=== PATIENT | female | born 1995 | race Two or more races ===

== ENCOUNTER 2019-12-17 06:33 | Outpatient (CLI) | payer OTHER | END 2019-12-17 09:22 | disposition home or self-care (01) | LOC: NST 06:33 | PROVIDERS: ATTEND Obstetrics & Gynecology | DX: Z34.83 Encounter for supervision of other normal pregnancy, third trimester (principal) ==

== ENCOUNTER 2019-12-23 15:17 | Inpatient (IN) | payer OTHER ==
[~2019-12-23] VITALS: Ht 160 cm; Wt 68.0 kg
[2019-12-23] MEDS ORDERED: PRENATAL TABLE1 EAC1 PO (16:44)
[2019-12-25] MEDS ORDERED: AMOX1TAB5 PO (08:12)
[2019-12-25] MEDS ORDERED: DERMOPLAST PAIN78 GM TOP (08:12)
[2019-12-25] MEDS ORDERED: IBUPROFEN400 MG PO (08:12)
[2019-12-25] MEDS ORDERED: PREPLUS CA-FE1 EACH PO (08:12)
[2019-12-25] MEDS ORDERED: DOCUSATE SODIU100 MG PO (08:12)
== END 2019-12-25 12:34 | disposition home or self-care (01) | DRG 807 ==
LOC: OB/GYN 15:17 → LDR 15:17 → OB/GYN 12-24 00:19
PROVIDERS: ADMIT Obstetrics & Gynecology; ATTEND Obstetrics & Gynecology
PROC: 10E0XZZ Delivery of Products of Conception, External Approach (ICD-10-PCS; principal; 2019-12-23)
PROC: 0W8NXZZ Division of Female Perineum, External Approach (ICD-10-PCS; 2019-12-23)
PROC: 4A1HXFZ Monitoring of Products of Conception, Cardiac Rhythm, External Approach (ICD-10-PCS; 2019-12-23)
DX: O99.824 Streptococcus B carrier state complicating childbirth (principal); Z37.0 Single live birth; O69.81X0 Labor and delivery complicated by cord around neck, without compression, not applicable or unspecified; Z3A.38 38 weeks gestation of pregnancy; Z20.828 Contact with and (suspected) exposure to other viral communicable diseases

== ENCOUNTER 2021-12-27 11:44 | Outpatient (CLI) | payer OTHER ==
[~2021-12-27 11:44] MED LIST: AMOX1TAB5 PO; DERMOPLAST PAIN78 GM TOP; DOCUSATE SODIU100 MG PO; IBUPROFEN400 MG PO; PRENATAL TABLE1 EAC1 PO; PREPLUS CA-FE1 EACH PO
== END 2021-12-27 12:29 | disposition home or self-care (01) ==
LOC: NST 11:44
PROVIDERS: ATTEND Obstetrics & Gynecology Maternal & Fetal Medicine
DX: Z34.82 Encounter for supervision of other normal pregnancy, second trimester (principal)

== ENCOUNTER 2022-01-30 20:40 | Outpatient (CLI) | payer OTHER ==
[2022-01-30] MEDS ORDERED: PRENATAL CAPLE1 EAC1 PO (21:04)
== END 2022-01-31 09:53 | disposition home or self-care (01) ==
LOC: OBS/DEL 20:40
PROVIDERS: ATTEND Obstetrics & Gynecology Maternal & Fetal Medicine
DX: O9A.213 Injury, poisoning and certain other consequences of external causes complicating pregnancy, third trimester (principal); S00.81XA Abrasion of other part of head, initial encounter; Z3A.28 28 weeks gestation of pregnancy; W10.8XXA Fall (on) (from) other stairs and steps, initial encounter; Y93.E5 Activity, floor mopping and cleaning; Y92.009 Unspecified place in unspecified non-institutional (private) residence as the place of occurrence of the external cause

== ENCOUNTER 2022-04-10 14:00 | Inpatient (IN) | payer OTHER ==
[~2022-04-10] VITALS: Ht 160 cm; Wt 66.7 kg
[~2022-04-10 14:00] MED LIST changes: +PRENATAL CAPLE1 EAC1 PO
== END 2022-04-15 11:13 | disposition home or self-care (01) | DRG 807 ==
LOC: LDR 04-13 06:53 → OB/GYN 04-13 19:16
PROVIDERS: ADMIT Obstetrics & Gynecology; ATTEND Obstetrics & Gynecology
PROC: 10E0XZZ Delivery of Products of Conception, External Approach (ICD-10-PCS; principal; 2022-04-13)
PROC: 0KQM0ZZ Repair Perineum Muscle, Open Approach (ICD-10-PCS; 2022-04-13)
PROC: 0W8NXZZ Division of Female Perineum, External Approach (ICD-10-PCS; 2022-04-13)
PROC: 4A1HXCZ Monitoring of Products of Conception, Cardiac Rate, External Approach (ICD-10-PCS; 2022-04-13)
DX: O70.1 Second degree perineal laceration during delivery (principal); Z37.0 Single live birth; Z3A.38 38 weeks gestation of pregnancy; Z20.822 Contact with and (suspected) exposure to COVID-19

== ENCOUNTER 2022-06-20 08:45 | Day surgery (SDC) | payer OTHER | END 2022-06-20 18:00 | disposition home or self-care (01) | LOC: CIR.AMB 08:45 | PROVIDERS: ATTEND Obstetrics & Gynecology | DX: Z30.2 Encounter for sterilization (principal); N83.8 Other noninflammatory disorders of ovary, fallopian tube and broad ligament; Z64.1 Problems related to multiparity; Z20.822 Contact with and (suspected) exposure to COVID-19 ==

== ENCOUNTER 2023-06-01 12:16 | Emergency (ER) | payer OTHER ==
[~2023-06-01] VITALS: Ht 160 cm; Wt 55.3 kg
[2023-06-01 15:29] LABS: HEMATOCRIT 38.1 % (36.0-45.00); HEMOGLOBIN 12.6 g/dL (12.0-15.00); MEAN CELL VOLUME 88.5 fL (80.00-100.00); MEAN CORPUSCULAR HEMOGLOBIN 29.2 pg (27.00-32.0); PLATELET COUNT 277 K/uL (150-450); RED BLOOD COUNT 4.31 M/uL (4.00-6.00); RED CELL DISTRIBUTION WIDTH 14.1 % (11.5-14.5)
[2023-06-01 15:35] LABS: URINE APPEARANCE Clear; URINE BILIRRUBIN Negative (NEGATIVE); URINE BLOOD Large; URINE COLOR Yellow; URINE GLUCOSE Negative (NEGATIVE); URINE LEUKOCYTE Trace; URINE NITRATE Negative; URINE PROTEIN Trace (NEGATIVE)
[2023-06-01 15:39] LABS: URINE BACTERIA 186.4 uL (0.0-1933); URINE EPITHELIAL CELLS 4.3 uL (0.0-38.8); URINE WBC 30.7 uL (0.0-23.2)
[2023-06-01 15:54] LABS: ALBUMIN 3.5 gm/dL (3.4-5.0); ALKALINE PHOSPHATASE 59 U/L (50-136); ALT/SGPT 23 U/L (12-78); ANION GAP 6 (10.0-20.0); AST/SGOT 13 U/L (15-37); BILIRUBIN TOTAL 0.99 mg/dL (0.3-1.2); BLOOD UREA NITROGEN 15 mg/dL (7-18); BUN CREA RATIO 16 (7.0-25.0); CALCIUM 8.6 mg/dL (8.5-10.1); CARBON DIOXIDE 30 mEq/L (21-32); CHLORIDE 109 mmol/L (98-107); CREATININE SERUM 0.92 mg/dL (0.55-1.02); GFR 73.23; GLOBULINA 3.3 G/DL (2.4-3.5); GLUCOSE FASTING 87 mg/dL (65-100); OSMOLALITY SERUM 281 MOSM/KG (275-295); POTASSIUM 4.04 mEq/L (3.5-5.1); SODIUM 141 mmol/L (136-145); TOTAL PROTEIN 6.8 gm/dL (6.4-8.2)
[2023-06-01 16:03] LABS: HCG QUANTITATIVE < 1 mUI/mL (1-3)
[2023-06-01] MEDS ORDERED: DOLOGESIC-DF 51 EACH PO (17:47)
== END 2023-06-01 17:55 | disposition home or self-care (01) ==
LOC: ER 12:16
PROVIDERS: General Practice
DX: N93.9 Abnormal uterine and vaginal bleeding, unspecified (principal); N92.6 Irregular menstruation, unspecified; R10.2 Pelvic and perineal pain